=== PATIENT | female | born 1970 | race Two or more races ===

== ENCOUNTER 2024-05-05 15:38 | Emergency (ER) | payer MEDICAID ==
[~2024-05-05] VITALS: Ht 154.9 cm; Wt 71.2 kg
[2024-05-05] MEDS ORDERED: IBUP-1955 PO (18:46)
[2024-05-05] MEDS ORDERED: IBUPROFEN 600 MG TABLET ONE (19:01)
[2024-05-05] MEDS: IBUPROFEN 600 MG TABLET PO ONE (19:07)
[2024-05-05 19:38] VITALS: BP 135/71; TEMP 98.7; O2SAT 100
== END 2024-05-05 19:38 | disposition home or self-care (01) ==
LOC: ER 15:44
DX: S16.1XXA Strain of muscle, fascia and tendon at neck level, initial encounter (principal); S20.212A Contusion of left front wall of thorax, initial encounter; S09.8XXA Other specified injuries of head, initial encounter; M25.512 Pain in left shoulder; V43.52XA Car driver injured in collision with other type car in traffic accident, initial encounter; Y93.89 Activity, other specified; Y92.488 Other paved roadways as the place of occurrence of the external cause; Y99.8 Other external cause status
CPT/HCPCS: 70450-TC; 71100-TC; 72125-TC; 73030-TC